=== PATIENT | female | born 2000 | race Caucasian/White ===

== ENCOUNTER → 2021-03-21 | Outpatient (CLI) | payer BC ==
[~2021-03-21] MED LIST: IBU600 MG PO; PERCOCET 325 MG1 TA2 PO
== END ==
LOC: COL.RAD 10:48
DX: R10.11 Right upper quadrant pain (principal); R11.0 Nausea

== ENCOUNTER 2021-03-23 09:06 | Observation (INO) | payer BC ==
[2021-03-23] VITALS (8 sets, daily range): BP systolic 115–132; BP diastolic 60–73; PULSE 83–95; TEMP 98.6
[~2021-03-23] VITALS: Ht 20.3 cm; Wt 95.5 kg
[2021-03-23 10:48] LABS: BASO % 0.3 % (0.0-2.0); EOS # 0.1 K/mm3 (0.0-0.7); EOS % 0.7 % (0-4.0); GRAN # 9.7 K/mm3 (1.4-6.5); GRAN % 82.4 % (42.2-75.2); HEMATOCRIT 37.5 % (37.0-47.0); LYMPH # 1.6 K/mm3 (1.2-3.4); LYMPH % 13.4 % (20.0-51.0); MEAN CELL VOLUME 83 fl (80.0-100.0); MEAN CORPUSCULAR HEMOGLOBIN 29 pg (27.0-31.0); MEAN CORPUSCULAR HGB CONC 35 g/dl (33.0-37.0); MEAN PLATELET VOLUME 10.1 fl (7.4-10.4); MONO # 0.3 K/mm3 (0.1-0.6); MONO % 2.9 % (1.7-9.3); PLATELET COUNT 351 K/mm3 (130-400); REDCELL DISTRIBUTION WIDTH-CV 11.9 % (11.5-14.5)
[2021-03-23 11:03] LABS: ALBUMIN 4.6 gm/dL (3.5-5.0); BILIRUBIN,TOTAL 0.5 mg/dL (0.2-1.2); C-REACTIVE PROTEIN 0.23 mg/dL (0.00-0.50); CALCIUM 10.1 mg/dL (8.4-10.2); CREATININE, serum 0.9 mg/dL (0.57-1.11); POTASSIUM 3.9 mmol/L (3.5-4.5); TOTAL PROTEIN 8.2 gm/dL (6.2-8.1)
[2021-03-23 12:20] LABS: COLLECTION METHOD CLEAN CATCH
[2021-03-23 12:26] LABS: MUCOUS Present (NOT PRESENT); PH 7 (5-8); SQUAMOUS EPITHELIAL 0-2 /hpf (0-10); URINE APPEARANCE Clear (CLEAR/HAZY); URINE BACTERIA None Seen (NONE SEEN); URINE BILIRUBIN Negative (NEGATIVE); URINE BLOOD 1+ (NEGATIVE); URINE COLOR Straw (YELLOW); URINE GLUCOSE 1+ (NEGATIVE); URINE KETONE Negative (NEGATIVE); URINE LEUKOCYTE ESTERASE Negative (NEGATIVE); URINE NITRATE Negative (NEGATIVE); URINE PROTEIN(semi-quant) Negative (NEGATIVE); URINE RBC 0-2 /hpf (0-2); URINE UROBILINOGEN Negative (NEGATIVE)
--- NOTE | 2021-03-23 18:35 | NUR ---
Pt to 222 from PACU. Parents at bedside. Post op vitals started. VS stable. Pt alert. Abdominal incision drainage marked by this RN. Will monitor. Plan of care explained to pt.
--- NOTE | 2021-03-23 20:30 | NUR ---
Post op VS completed. Plan of care explained. 2229: Pt sat on edge of bed. Due to pt being on her period mesh panties and pad applied. Pt ambulatory standby assist with this RN in hallway. Tolerated well. Pt back to bed to get some rest. Denies needing anything else at this time.
[2021-03-24] VITALS: BP 132/66; PULSE 101; TEMP 98.7
[2021-03-24 04:45] VITALS: BP 106/55; PULSE 83; TEMP 98.5
[2021-03-24 07:11] VITALS: BP 117/57; PULSE 85; TEMP 97.7
[2021-03-24] MEDS ORDERED: PERCOCET 325 MG1 TA2 PO (08:22)
[2021-03-24] MEDS ORDERED: IBU600 MG PO (08:22)
--- NOTE | 2021-03-24 09:32 | NUR ---
Initial visit; Patient thanked [employer] Clerk for stopping by and offering God's blessings. Patient requested that [employer] Clerk keep her in her prayers.
[2021-03-24 11:20] VITALS: BP 122/66; PULSE 83; TEMP 98.1
--- NOTE | 2021-03-24 12:29 | NUR ---
[facility] REMOVED THIS AM AT 725. PATIENT ABLE TO SPONTANEOUSLY VOID AT 1200. TOLERATING PAIN WELL WITH MEDICATION. RN ENCOURAGED PT TO TRY TO AMBULATE MORE. PT IN SHOWER AT THIS TIME AND WILL REMOVE ABDOMINAL DRESSING IN SHOWER.
--- NOTE | 2021-03-24 16:00 | NUR ---
1230: ABDOMINAL DRESSING REMOVED IN THE SHOWER. INCISION WELL APPROXIMATED WITH MILD AMOUNT OF DRAINAGE ON UNDERWEAR--NOT ACTIVE DRAINAGE.
== END 2021-03-24 16:57 | disposition home or self-care (01) ==
LOC: COL.ER 09:06 → OB 14:39 → SDCO 14:39 → OB 15:29
PROVIDERS: Physician Assistant; ADMIT Obstetrics & Gynecology
DX: N83.201 Unspecified ovarian cyst, right side (principal); N83.511 Torsion of right ovary and ovarian pedicle
CPT/HCPCS: A4314; C1765; G0378; J0690; J1100; J1885; J2060; J2270; J2405; J2704; J3010; J7030; Q9967